=== PATIENT | female | born 1965 | race Caucasian/White ===

== ENCOUNTER 2017-07-17 13:19 | Emergency (ER) | payer OTHER ==
[~2017-07-17] VITALS: Ht 165.1 cm; Wt 97.5 kg
[~2017-07-17 13:19] MED LIST: CARISOPRODOL 3350 MG PO; GLYBURIDE 3 MG M3 M1 PO; LANTUS SC; METFORMIN 500500 MG PO; NAPROSYN500 MG PO; PREVACID 30MG C30 M1 PG; ULTRAM 50MG TAB50 MG PO; VICODIN 5-5001 EACH PO; XANAX 1 MG TABLE1 MG PO; ZANTAC 150MG T150 M1 PO; ZOCOR5 MG PO
[2017-07-17] MEDS ORDERED: ZOFRAN ODT4 MG PO (15:17)
[2017-07-17] MEDS ORDERED: ANTIVERT25 MG PO (15:17)
[2017-07-17 15:28] VITALS: BP 103/64
== END 2017-07-17 15:31 | disposition home or self-care (01) ==
LOC: ER 13:19
DX: R42 Dizziness and giddiness (principal); T42.6X5A Adverse effect of other antiepileptic and sedative-hypnotic drugs, initial encounter; E11.9 Type 2 diabetes mellitus without complications; F32.9 Major depressive disorder, single episode, unspecified; Z90.89 Acquired absence of other organs; Z88.1 Allergy status to other antibiotic agents; Z88.3 Allergy status to other anti-infective agents; Y92.9 Unspecified place or not applicable

== ENCOUNTER 2017-10-05 12:58 | Emergency (ER) | payer OTHER ==
[~2017-10-05] VITALS: Ht 165.1 cm; Wt 95.3 kg
[2017-10-05 12:58] VITALS: BP 128/68
[~2017-10-05 12:58] MED LIST changes: +ANTIVERT25 MG PO; +ZOFRAN ODT4 MG PO
[2017-10-05] MEDS ORDERED: LISINOPRIL10 MG PO (13:27)
[2017-10-05] MEDS ORDERED: LANTUS100 UNIT/M SUBQ (13:29)
[2017-10-05] MEDS ORDERED: NOVOLOG100 UNIT/1 SUBQ (13:29)
[2017-10-05] MEDS ORDERED: CYCLOBENZAPRINE5 MG PO (13:59)
[2017-10-05] MEDS ORDERED: NORCO 5-325 TA1 EACH PO (13:59)
== END 2017-10-05 14:07 | disposition home or self-care (01) ==
LOC: ER 12:58
DX: S16.1XXA Strain of muscle, fascia and tendon at neck level, initial encounter (principal); S39.012A Strain of muscle, fascia and tendon of lower back, initial encounter; M54.12 Radiculopathy, cervical region; M54.30 Sciatica, unspecified side; E11.9 Type 2 diabetes mellitus without complications; F32.9 Major depressive disorder, single episode, unspecified; Z88.1 Allergy status to other antibiotic agents; Z88.8 Allergy status to other drugs, medicaments and biological substances; Z90.49 Acquired absence of other specified parts of digestive tract; Z79.4 Long term (current) use of insulin; V49.40XA Driver injured in collision with unspecified motor vehicles in traffic accident, initial encounter; Y92.89 Other specified places as the place of occurrence of the external cause; Y93.89 Activity, other specified; Y99.8 Other external cause status

== ENCOUNTER 2017-10-20 04:49 | Emergency (ER) | payer OTHER ==
[~2017-10-20] VITALS: Ht 165.1 cm; Wt 97.5 kg
--- NOTE | ~2017-10-20 | EKG ---
[address] [place] [employer] [place] [address] ELECTROCARDIOGRAM REPORT Name: MAXIMUS JAMISON [id number] Admission: 10/20/17 Attend Phys: Discharge: 10/20/17 Date of : 69 Report #: [id number] THIS REPORT FOR: //name// [facility] ED Test Date: 2017-10-20 Test Time: 05:38:00 Pat Name: MAXIMUS JAMISON Department: Room: Gender: F Poultry Trimmer: jcnathan : 1965 Requested By: Ofe Deleon Order Number: [id number] MD: Michel Yen Measurements Intervals Brick Rate: 78 P: 31 KS: 194 QRS: 57 QRSD: 104 T: 11 QT: 399 QTc: 455 Interpretive Statements Sinus rhythm RSR' in V1 or V2, right VCD Compared to ECG 03/18/2009 21:50:13 RSR' in V1 or V2 now present Electronically Signed On 10-20-2017 8:01:36 CDT by Michel Yen [email or web address] <ELECTRONICALLY SIGNED> By: Michel Yen MD, [facility] 10/20/17800 0538 0538 Michel Yen MD, [facility] /EPI
[~2017-10-20 04:49] MED LIST changes: +CYCLOBENZAPRINE5 MG PO; +LANTUS100 UNIT/M SUBQ; +LISINOPRIL10 MG PO; +NORCO 5-325 TA1 EACH PO; +NOVOLOG100 UNIT/1 SUBQ
[2017-10-20] MEDS ORDERED: FISH OIL 1,001000 M2 PO (05:06)
[2017-10-20] MEDS ORDERED: LEXAPRO 10 MG T10 M2 PO (05:06)
[2017-10-20] MEDS ORDERED: METFORMIN HCL500 MG PO (05:06)
[2017-10-20 05:29] LABS: ABSOLUTE NEUTROPHILS 7.1 thou/uL (1.4-8.2); BASOPHILS 0.9 % (0.0-2.0); HEMATOCRIT 44.2 % (37.0-47.0); HEMOGLOBIN 14.9 gm/dL (12.0-15.0); LYMPHOCYTES 26.1 % (24.0-44.0); MCHC 33.8 g/dL (28.0-37.0); MCV 85.7 fL (80.0-100.0); MONOCYTES 5.5 % (1.0-8.0); PLATELET COUNT 297 thou/uL (150-400); POLYS 64.5 % (36.0-66.0); RBC 5.15 mil/uL (4.20-5.00); WBC 11.1 thou/uL (4.0-11.0)
[2017-10-20] MEDS ORDERED: PHENERGAN 25 MG25 M1 PO (05:33)
[2017-10-20] MEDS ORDERED: VALIUM5 MG PO (05:34)
[2017-10-20 05:42] LABS: CALCIUM 9.4 mg/dL (8.5-10.1); POTASSIUM 3.7 mmol/L (3.5-5.1)
[2017-10-20 06:14] VITALS: BP 132/65
== END 2017-10-20 06:22 | disposition home or self-care (01) ==
LOC: ER 04:49
PROVIDERS: Emergency Medicine
DX: R42 Dizziness and giddiness (principal); R11.2 Nausea with vomiting, unspecified; F41.0 Panic disorder [episodic paroxysmal anxiety]; E11.9 Type 2 diabetes mellitus without complications; F32.9 Major depressive disorder, single episode, unspecified; Z90.49 Acquired absence of other specified parts of digestive tract; Z88.1 Allergy status to other antibiotic agents

== ENCOUNTER → 2018-07-21 | Outpatient (CLI) | payer OTHER ==
[~2018-07-21] MED LIST changes: +FISH OIL 1,001000 M2 PO; +LEXAPRO 10 MG T10 M2 PO; +METFORMIN HCL500 MG PO; +PHENERGAN 25 MG25 M1 PO; +VALIUM5 MG PO
== END ==
LOC: MRI 07-07 13:23
DX: M47.22 Other spondylosis with radiculopathy, cervical region (principal); M50.122 Cervical disc disorder at C5-C6 level with radiculopathy; M48.02 Spinal stenosis, cervical region; M25.78 Osteophyte, vertebrae; E07.9 Disorder of thyroid, unspecified

== ENCOUNTER → 2018-11-16 | Outpatient (CLI) | payer OTHER | LOC: MRI 14:50 | DX: M48.061 Spinal stenosis, lumbar region without neurogenic claudication (principal); M25.78 Osteophyte, vertebrae ==

== ENCOUNTER 2019-05-04 11:00 | Emergency (ER) | payer OTHER ==
[~2019-05-04] VITALS: Ht 172.7 cm; Wt 88.5 kg
[2019-05-04 11:36] LABS: ANION GAP 10 mmol/L (7-16); BUN 15 mg/dL (7-18); CALCIUM 9.5 mg/dL (8.5-10.1); CHLORIDE 95 mmol/L (98-107); CO2 27 mmol/L (21-32); CREATININE 0.9 mg/dL (0.6-1.0); GLUCOSE 364 mg/dL (74-106); POTASSIUM 4.2 mmol/L (3.5-5.1); SODIUM 132 mmol/L (136-145)
[2019-05-04 11:37] LABS: ABSOLUTE NEUTROPHILS 8.5 thou/uL (1.4-8.2); BASOPHILS 0.4 % (0.0-2.0); EOSINOPHILS 1.3 % (0.0-3.0); HEMOGLOBIN 14.9 gm/dL (12.0-15.0); LYMPHOCYTES 18.1 % (24.0-44.0); MCH 28.8 pg (26.0-34.0); MCHC 33.1 g/dL (28.0-37.0); MCV 87.2 fL (80.0-100.0); MONOCYTES 5.6 % (1.0-8.0); PLATELET COUNT 261 thou/uL (150-400); POLYS 74.6 % (36.0-66.0); RBC 5.15 mil/uL (4.20-5.00); RDW 13.4 % (10.5-14.5); WBC 11.3 thou/uL (4.0-11.0)
[2019-05-04 11:46] LABS: ALBUMIN 3.4 g/dL (3.4-5.0); SGOT 271 U/L (15-37); SGPT 224 U/L (30-65); TOTAL BILIRUBIN 1.3 mg/dL (<0.1-1.0); TOTAL PROTEIN 7.5 g/dL (6.4-8.2); TROPONIN-I <0.06 ng/mL (<0.06)
[2019-05-04 12:17] LABS: URINE BILIRUBIN NEGATIVE (Negative); URINE BLOOD NEGATIVE (Negative); URINE CLARITY CLEAR; URINE COLOR YELLOW; URINE GLUCOSE-RANDOM* 3+ (Negative); URINE KETONES 2+ (Negative); URINE LEUKOCYTES-REFLEX NEGATIVE (Negative); URINE NITRITE-REFLEX NEGATIVE (Negative); URINE PROTEIN (DIPSTICK) NEGATIVE (Negative); URINE UROBILINOGEN 0.2 E.U./dl (0.2-1.0)
[2019-05-04 12:25] LABS: AMP/METHAMP Negative (Negative); BARBITURATES Negative (Negative); BENZODIAZEPINES Negative (Negative); COCAINE Negative (Negative); METHADONE Negative (Negative); OPIATES Negative (Negative); PCP Negative (Negative)
[2019-05-04 12:33] LABS: APTT 27.1 Seconds (24.5-32.8)
[2019-05-04 12:39] LABS: MAGNESIUM 1.7 mg/dL (1.8-2.4)
[2019-05-04] MEDS ORDERED: ONDANSETRON ODT8 MG PO (15:18)
[2019-05-04] MEDS ORDERED: NORCO 5-325 TA1 EAC1 PO (15:18)
[2019-05-04 15:34] VITALS: BP 116/48
--- NOTE | 2019-05-05 09:33 | EKG ---
[facility] [place] [address] ELECTROCARDIOGRAM REPORT Name: MAXIMUS JAMISON Room #: DEP [facility] [id number] Admission: 05/04/19 Attend Phys: Discharge: 05/04/19 Date of : 69 Report #: [id number] THIS REPORT FOR: cc: César Copeland MD, C. Douglas MD Lundgren,Michel Funez MD [facility] THIS REPORT FOR: //name// [facility] ED Test Date: 2019-05-04 Test Time: 11:03:24 Pat Name: MAXIMUS JAMISON Department: Room: Gender: F Specialty Person: EILEEN : 1965 Requested By: Jose Daniel Rodriguez Order Number: [id number] MD: Michel Yen Measurements Intervals [place] Rate: 60 P: -6 ID: 150 QRS: 70 QRSD: 98 T: 39 QT: 433 QTc: 433 Interpretive Statements Sinus rhythm Normal tracing Compared to ECG 10/20/2017 05:38:00 No significant change was found Electronically Signed On 05-05-2019 9:32:03 [employer] by Michel Yen [email or web address] <ELECTRONICALLY SIGNED> By: Michel Yen MD, FACC 05/05/19 0932 [id number] Michel Yen MD, [facility] /EPI
== END 2019-05-04 15:35 | disposition home or self-care (01) ==
LOC: ER 11:00
PROVIDERS: Emergency Medicine
DX: K85.90 Acute pancreatitis without necrosis or infection, unspecified (principal); R94.5 Abnormal results of liver function studies; E11.9 Type 2 diabetes mellitus without complications; Z88.1 Allergy status to other antibiotic agents; Z88.8 Allergy status to other drugs, medicaments and biological substances; Z79.4 Long term (current) use of insulin; Z79.899 Other long term (current) drug therapy

== ENCOUNTER 2019-07-18 10:44 | Emergency (ER) | payer OTHER ==
[~2019-07-18] VITALS: Ht 165.1 cm; Wt 88.5 kg
[~2019-07-18 10:44] MED LIST changes: +NORCO 5-325 TA1 EAC1 PO; +ONDANSETRON ODT8 MG PO
[2019-07-18] MEDS ORDERED: VITAFOL-ONE CA1 EACH PO (11:56)
[2019-07-18] MEDS ORDERED: FAMOTIDINE40 MG PO (11:56)
[2019-07-18] MEDS ORDERED: IBUPROFEN 400400 M2 PO (12:23)
[2019-07-18] MEDS ORDERED: NORCO 5-325 TA1 EAC1 PO (12:23)
[2019-07-18 12:26] VITALS: BP 130/62
== END 2019-07-18 12:32 | disposition home or self-care (01) ==
LOC: ER 10:44
DX: S42.022A Displaced fracture of shaft of left clavicle, initial encounter for closed fracture (principal); M79.631 Pain in right forearm; M79.632 Pain in left forearm; M25.512 Pain in left shoulder; R10.11 Right upper quadrant pain; E11.9 Type 2 diabetes mellitus without complications; Z79.4 Long term (current) use of insulin; Z79.899 Other long term (current) drug therapy; Z88.1 Allergy status to other antibiotic agents; Z88.8 Allergy status to other drugs, medicaments and biological substances; Z90.49 Acquired absence of other specified parts of digestive tract; W22.8XXA Striking against or struck by other objects, initial encounter; Y93.89 Activity, other specified; Y92.89 Other specified places as the place of occurrence of the external cause; Y99.8 Other external cause status

== ENCOUNTER 2019-08-10 21:47 | Emergency (ER) | payer OTHER ==
[~2019-08-10] VITALS: Ht 162.6 cm; Wt 88.5 kg
[2019-08-10 21:47] VITALS: BP 136/69
[~2019-08-10 21:47] MED LIST changes: +FAMOTIDINE40 MG PO; +IBUPROFEN 400400 M2 PO; +VITAFOL-ONE CA1 EACH PO
== END 2019-08-10 23:05 | disposition home or self-care (01) ==
LOC: ER 21:47
DX: S42.032A Displaced fracture of lateral end of left clavicle, initial encounter for closed fracture (principal); M54.6 Pain in thoracic spine; E11.9 Type 2 diabetes mellitus without complications; Z88.8 Allergy status to other drugs, medicaments and biological substances; Z88.1 Allergy status to other antibiotic agents; Z79.4 Long term (current) use of insulin; Z79.899 Other long term (current) drug therapy; Z90.49 Acquired absence of other specified parts of digestive tract; Y04.0XXA Assault by unarmed brawl or fight, initial encounter; Y93.89 Activity, other specified; Y92.89 Other specified places as the place of occurrence of the external cause; Y99.9 Unspecified external cause status

== ENCOUNTER 2019-11-11 11:47 | Emergency (ER) | payer OTHER ==
[~2019-11-11] VITALS: Ht 165.1 cm; Wt 87.1 kg
[2019-11-11] MEDS ORDERED: OMEPRAZOLE 20 M20 M1 PO (12:01)
[2019-11-11] MEDS ORDERED: LIPITOR 40 MG T40 M1 PO (12:01)
[2019-11-11] MEDS ORDERED: NYSTATIN15 G3 TOP (12:01)
[2019-11-11] MEDS ORDERED: TRAZODONE HCL100 MG PO (12:02)
[2019-11-11] MEDS ORDERED: MOBIC15 MG PO (15:06)
[2019-11-11 15:53] VITALS: BP 145/68
== END 2019-11-11 16:38 | disposition home or self-care (01) ==
LOC: ER 11:47
DX: S16.1XXA Strain of muscle, fascia and tendon at neck level, initial encounter (principal); R51 Headache; E11.9 Type 2 diabetes mellitus without complications; Z90.49 Acquired absence of other specified parts of digestive tract; Z79.4 Long term (current) use of insulin; Z79.899 Other long term (current) drug therapy; Z88.1 Allergy status to other antibiotic agents; Z88.8 Allergy status to other drugs, medicaments and biological substances; Y04.2XXA Assault by strike against or bumped into by another person, initial encounter; Y93.89 Activity, other specified; Y92.89 Other specified places as the place of occurrence of the external cause; Y99.8 Other external cause status